=== PATIENT | male | born 1975 | race Caucasian/White ===

== ENCOUNTER 2020-10-10 18:45 | Emergency (ER) | payer OTHER, SELFPAY ==
[2020-10-10 19:47] VITALS: BP 124/84; PULSE 85; PULSE 86; RESP 18; TEMP 36.4; O2SAT 97; BMI 63.1
--- NOTE | 2020-10-10 19:51 | ED_ITS ---
HPI - Psych General Chief Complaint: Psychiatric Symptoms <ADRYAN Cruz Last Filed: 10/11/20 01:48> Stated Complaint: crisis <ADRYAN Cruz Last Filed: 10/11/20 01:48> Time Seen by Provider: 10/11/20 07:08 <ADRYAN Cruz Last Filed: 10/11/20 01:48> Source: patient <ADRYAN Cruz Filed: 10/11/20 01:48> Mode of arrival: ambulatory <ADRYAN Cruz Filed: 10/11/20 01:48> Limitations: no limitations <ADRYAN Cruz Filed: 10/11/20 01:48> History of Present Illness HPI Narrative: Patient presents to ED stating suicidal and homicidal thoughts. Patient refused to elaborate. <ADRYAN Cruz Filed: 10/11/20 01:48> MD complaint: suicidal ideation <ADRYAN Cruz Filed: 10/11/20 01:48> Related Data Allergies/Adverse Reactions: Allergies Allergy/AdvReac Type Severity Reaction Status Date / Time quetiapine [From SEROQUEL] Allergy Unknown irregular Verified 10/11/20 00:49 heart beat <ADRYAN Cruz Last Filed: 10/11/20 01:48> Review of Systems Constitutional: Constitutional: Reports as per HPI and Reports no additional constitutional complaints <ADRYAN Cruz Filed: 10/11/20 01:48> Eyes: Eyes: Reports as per HPI and Reports no additional eye complaints <ADRYAN Cruz Last Filed: 10/11/20 01:48> ENT: Reports system reviewed and no additional complaints, except as documented and Reports as per HPI <ADRYAN Cruz Last Filed: 10/11/20 01:48> Cardiovascular: Cardiovascular: Reports as per HPI and Reports no additional cardiovascular complaints <ADRYAN Cruz Filed: 10/11/20 01:48> Respiratory: Respiratory: Reports as per HPI and Reports no additional respiratory complaints <ADRYAN Cruz Last Filed: 10/11/20 01:48> Gastrointestinal: Gastrointestinal: Reports as per HPI and Reports no additional gastrointestinal complaints <ADRYAN Cruz - Last Filed: 10/11/20 01:48> Musculoskeletal: Musculoskeletal: Reports no additional musculoskeletal comp laints and Reports as per HPI <ADRYAN Cruz - Last Filed: 10/11/20 01:48> Neurologic: Reports system reviewed and no additional complaints, except as documented and Reports as per HPI <ADRYAN Cruz - Last Filed: 10/11/20 01:48> Psychiatric: Psychiatric: Reports no additional psychiatric complaints, Reports as per HPI, Reports homicidal ideation and Reports suicidal ideation <ADRYAN Cruz - Last Filed: 10/11/20 01:48> PMF Past Medical History Medical History: Medical History (Updated 10/11/20 @ 01:44 by ADRYAN Cruz) No known health problems <ADRYAN Cruz - Last Filed: 10/11/20 01:48> Social History Social History: Social History Advance Directives: No Advance Directives Information Provided: No <ADRYAN Cruz - Last Filed: 10/11/20 01:48> Physical Exam Vital Signs: Vital Signs: Last Vital Signs Temp 97.7 F 10/10/20 21:46 Pulse 89 10/10/20 21:46 Resp 16 10/10/20 21:46 BP 132/61 10/10/20 21:46 Pulse Ox 99 10/10/20 21:46 Body Mass Index 63.1 <ADRYAN Cruz - Last Filed: 10/11/20 01:48> Vital Signs: Last Vital Signs Temp 97.7 F 10/10/20 21:46 Pulse 89 10/10/20 21:46 Resp 16 10/10/20 21:46 BP 132/61 10/10/20 21:46 Pulse Ox 99 10/10/20 21:46 Body Mass Index 63.1 <Jael Frey DO - Last Filed: 10/11/20 07:09> Const: General: cooperative, healthy appearing, comfortable, no acute distress and well developed <ADRYAN Cruz - Last Filed: 10/11/20 01:48> Orientation/consciousness: patient oriented x3 <ADRYAN Cruz - Last Filed: 10/11/20 01:48> HENMT: Head: Yes normal to inspection and Yes No palpable skull fracture present <ADRYAN Cruz Last Filed: 10/11/20 01:48> Eyes: General: appearance normal, both eyes and all related structures <ADRYAN Cruz Last Filed: 10/11/20 01:48> Neck: Neck: Yes normal visual inspection and Yes full ROM <ADRYAN Cruz Last Filed: 10/11/20 01:48> Chest: Chest palpation & inspection: normal inspection of the chest and normal palpation of entire chest wall <ADRYAN Cruz Last Filed: 10/11/20 01:48> Resp: Effort & Inspection: normal respiratory effort and able to speak in complete sentences <ADRYAN Cruz Last Filed: 10/11/20 01:48> Cardio: Jugular venous distension: no JVD <ADRYAN Cruz Last Filed: 10/11/20 01:48> Heart sounds: S1 normal heart sound present and S2 normal heart sound present <ADRYAN Cruz Last Filed: 10/11/20 01:48> GI: Inspection: Yes normal to inspection and No abdominal wall ecchymosis <Fransisco Villalpando [facility] Last Filed: 10/11/20 01:48> : General: No CVA tenderness and Yes no CVA tenderness <ADRYAN Cruz Filed: 10/11/20 01:48> Back/Spine/Pelvis: Back: no CVA tenderness, No CVA tenderness and No back tenderness <ADRYAN Cruz Last Filed: 10/11/20 01:48> Skin: General skin exam: no rashes or lesions noted <ADRYAN Cruz Last Filed: 10/11/20 01:48> Neuro: General: patient oriented x3, gait normal and CN's II-XI intact bilaterally <ADRYAN Cruz Last Filed: 10/11/20 01:48> Cranial nerves: Yes CN's II-XII intact bilaterally <ADRYAN Cruz Last Filed: 10/11/20 01:48> Extrem: General: Yes normal to inspection and Yes full ROM <ADRYAN Cruz Last Filed: 10/11/20 01:48> Psych: Appearance: grossly normal, well kempt and not disheveled <ADRYAN Cruz Last Filed: 10/11/20 01:48> Thought content: Suicidality present and Homicidality present <ADRYAN Cruz Last Filed: 10/11/20 01:48> Course Course Course Narrative: Patient will have U tox done. Patient awaiting [facility] evaluation. Consult placed. <ADRYAN Cruz Last Filed: 10/11/20 01:48> Reevaluation(s) Reevaluation #1: Patient sleeping and not in any distress. Patient awaiting [facility] evaluation in the morning. <ADRYAN Cruz Last Filed: 10/11/20 01:48> Time: 01:43 <ADRYAN Cruz Last Filed: 10/11/20 01:48> MDM - Psych MDM Narrative Medical decision making narrative: Depression <ADRYAN Cruz Last Filed: 10/11/20 01:48> Restraints Face to Face Assessment: Face to Face Assessment: Current Situation: After assessment of the patient, a review of the pertinent medical record and a discussion with nursing staff, I feel the patient requires a restrain intervention. Reaction To: [] Medical Condition: [] Behavioral State: [] Continued Need: [] <ADRYAN Cruz Last Filed: 10/11/20 01:48> Lab Data Labs: Lab Results 10/10/20 10/10/20 Range/Units 21:34 22:35 Urine Opiates Screen Not Detected (Not Detect) Ur Barbiturates Screen Not Detected (Not Detect) Ur Phencyclidine Scrn Not Detected (Not Detect) Ur Amphetamines Screen Not Detected (Not Detect) U Benzodiazepines Scrn Not Detected (Not Detect) Urine Cocaine Screen Not Detected (Not Detect) U Marijuana (THC) Screen Not Detected (Not Detect) Ethyl Alcohol 186 mg/dL <ADRYAN Cruz Last Filed: 10/11/20 01:48> Lab Results 10/10/20 10/10/20 Range/Units 21:34 22:35 Urine Opiates Screen Not Detected (Not Detect) Ur Barbiturates Screen Not Detected (Not Detect) Ur Phencyclidine Scrn Not Detected (Not Detect) Ur Amphetamines Screen Not Detected (Not Detect) U Benzodiazepines Scrn Not Detected (Not Detect) Urine Cocaine Screen Not Detected (Not Detect) U Marijuana (THC) Screen Not Detected (Not Detect) Ethyl Alcohol 186 mg/dL <Jael Frey DO - Last Filed: 10/11/20 07:09> Discharge Plan Discharge Clinical Impression: Depression <ADRYAN Cruz - Last Filed: 10/11/20 01:48>
--- NOTE | 2020-10-10 21:09 | PC.NURSE ---
PT SLEEPING IN HALLWAY RECLINER. SUMMARY FAXED TO [facility].
[2020-10-10 21:46] VITALS: BP 132/61; PULSE 89; RESP 16; TEMP 36.5; O2SAT 99
--- NOTE | 2020-10-10 21:46 | PC.NURSE ---
pt calm and cooperative, belongings secured in pod by security. pt ambulatory to bathroom and provided a urine specimen. pt's recliner adjusted for comfort.
[2020-10-10 22:48] LABS: Amphetamine Screen Urine Not Detected (Not Detect); Barbiturates, Urine Not Detected (Not Detect); Benzodiazepines Screen Urine Not Detected (Not Detect); Cannabinoid Screen Urine Not Detected (Not Detect); Cocaine Screen Urine Not Detected (Not Detect); Opiate Screen Urine Not Detected (Not Detect); Phencyclidine Screen Urine Not Detected (Not Detect)
[2020-10-10 22:59] LABS: Ethanol 186 mg/dL
[2020-10-11] MEDS: Acetaminophen 325 MG TABLET 650 MG PO (00:52)
--- NOTE | 2020-10-11 06:21 | PC.NURSE ---
pt wakes to voice, has been cooperative.
--- NOTE | 2020-10-11 07:33 | PC.NURSE ---
SPOKE WITH N AND CONFIRMED PT EVAL IS PENDING.
--- NOTE | 2020-10-11 08:38 | PC.NURSE ---
pharmacy came down to do pt med rec. pharmacy then called this rn and informed that [facility] reports no meds filled this year, ran report from multiple [facility]. pt unable to tell staff which program he came from where meds were prescribed. pharmacy will notify rn if any recently filled meds are able to be found. other [place], pt only taking OTC meds. BHn at bedside spekaing with pt at this time.
[2020-10-11 10:30] VITALS: BP 116/68; PULSE 96; RESP 16; TEMP 37.1; O2SAT 96
[2020-10-11 14:13] VITALS: BP 97/59; PULSE 100; RESP 16; TEMP 36.6; O2SAT 98
--- NOTE | 2020-10-11 14:13 | PC.NURSE ---
pt has been calm and cooperative with staff. sleeping off and on. aware he is a bed search and is agreeable. staff able to see patient at all times.
[2020-10-11 16:31] VITALS: BP 114/80; PULSE 89; TEMP 37.1; O2SAT 97
--- NOTE | 2020-10-11 17:09 | PC.NURSE ---
Pt transferred from main ED. Affect even, states he was recently discharged from a program called [facility] where he was receiving medications. Pt reports chronic depression, states he would like to be transferred 'to a state hospital' in particular, would like to return to [place]. Pt denies pain, states that he has a hx etoh abuse but reports that he has not been using etoh except for once as he was in a program.
[2020-10-11 18:00] VITALS: RESP 18
--- NOTE | 2020-10-11 19:19 | PC.NURSE ---
Report received. PT is sleeping in the room. Breathing is even and unlabored. Inpatient bed search in progress.
[2020-10-11 21:26] VITALS: BP 114/76; PULSE 78; RESP 18; TEMP 36.9; O2SAT 98
[2020-10-12 06:00] VITALS: BP 129/78; PULSE 88; RESP 18; TEMP 36.7; O2SAT 97
[2020-10-12 06:48] LABS: COVID-19 Test Negative (Negative); IDNOW Serial# 9DD0AD1C
--- NOTE | 2020-10-12 07:02 | PC.NURSE ---
Report received. PT currently sleeping, respirations even and unlabored, in no apparent distress. PT is inpatient bedsearch.
--- NOTE | 2020-10-12 09:05 | PC.NURSE ---
Nurse to nurse completed with Joi from [facility]. Pt accepted for 10am. N contacted for accepting information.
[2020-10-12 09:46] LABS: Basophils Absolute Auto 0.1 X10*3/uL (0.0-0.2); Basophils Percent Auto 0.8 % (0-2); Eosinophils Absolute Auto 0.1 X10*3/uL (0.0-0.4); Eosinophils Percent Auto 1.4 % (0-4); Hematocrit 44.3 % (42-52); Hemoglobin 14.6 g/dl (14.0-18.0); Imm Gran Abs Auto 0.03 X10*3/uL (0.00-0.03); Imm Gran Pct Auto 0.4 % (0.0-0.4); Lymphocytes Absolute Auto 1.8 X10*3/uL (1.2-4.9); Lymphocytes Percent Auto 23.5 % (20-40); MANUAL DIFF FLAG NO; Mean Corpuscular Hemoglobin 30.7 pg (27.0-33.0); Mean Corpuscular Volume 93.1 fL (80-98); Mean Platelet Volume 9.5 fL (9.4-12.4); Monocytes Absolute Auto 0.6 X10*3/uL (0.1-1.2); Monocytes Percent Auto 8.1 % (2-11); Neutrophils Absolute Auto 5.1 X10*3/uL (2.0-8.3); Neutrophils Percent Auto 65.8 % (45-73); Platelet Count 277 X10*3/uL (160-400); Red Blood Count 4.76 X10*6/uL (4.60-5.80); Red Cell Distribution Width 13.9 % (11.0-16.0); White Blood Count 7.8 X10*3/uL (4.8-10.8)
[2020-10-12 10:11] VITALS: BP 119/79; PULSE 75; RESP 16; TEMP 36.9; O2SAT 98
[2020-10-12 10:23] LABS: Alanine Aminotransferase 14 U/L (0-40); Albumin Level 4.3 g/dL (3.5-5.0); Alkaline Phosphatase 79 U/L (39-117); Anion Gap 13 (12-20); Aspartate Amino Transferase 16 U/L (5-37); Bilirubin Direct 0.2 mg/dL (0.0-0.5); Bilirubin Total 0.6 mg/dL (0.0-1.0); Blood Urea Nitrogen 15 mg/dL (9-16); Calcium 9.2 mg/dL (8.4-10.2); Carbon Dioxide 28 mmol/L (22-29); Chloride 102 mmol/L (96-108); Creatinine Clr Calc Pharmacy 158.4; Estimated Glomerular Filt Rate > 60; Glucose Random 86 mg/dL (60-115); Magnesium 2.2 mg/dL (1.6-2.6); Sodium 138 mmol/L (135-145); Total Protein 7.1 g/dL (6.5-8.0)
== END 2020-10-12 10:15 ==
PROVIDERS: Physician Assistant; Physician Assistant Medical; Student in an Organized Health Care Education/Training Program; Emergency Provider Emergency Medicine
DX: F32.9 Major depressive disorder, single episode, unspecified (principal); Z20.828 Contact with and (suspected) exposure to other viral communicable diseases
CPT/HCPCS: 36415; 80048; 80076; 80307; 80320; 83735; 85025; 87635; 99285